=== PATIENT | female | born 1990 | race Hispanic/Latino ===

== ENCOUNTER 2019-02-12 10:30 | Inpatient (IN) | payer OTHER ==
[~2019-02-12] VITALS: Ht 154.9 cm; Wt 78.1 kg
[2019-02-12 10:54] LABS: BASOPHILS % (AUTO) 0.6 % (0.0-5.0); EOSINOPHILS % (AUTO) 3.8 % (0.0-8.0); LYMPHOCYTES % (AUTO) 30.7 % (21.0-51.0); MEAN CORPUSCULAR HEMOGLOBIN 28.9 pg (27.0-33.0); MEAN CORPUSCULAR HGB CONC 33.7 g/dL (32.0-36.0); MEAN CORPUSCULAR VOLUME 85.6 fL (79-99); MONOCYTES % (AUTO) 6.7 % (3.0-13.0); NEUTROPHILS % (AUTO) 58.2 % (40.0-77.0); PLATELET COUNT (AUTO) 265 K/uL (130-400); RED BLOOD CELL COUNT(AUTO) 4.44 MIL/uL (4.00-5.50); RED CELL DISTRIBUTION WIDTH 13.2 % (11.0-15.5); WHITE BLOOD COUNT (AUTO) 6.8 K/uL (4.8-10.8)
[2019-02-12] MEDS ORDERED: SODIUM CHLORIDE 0.9% 1000ML 0 ML IV ONE (11:00)
[2019-02-12] MEDS ORDERED: ONDANSETRON HCL 4 MG/2 ML VIAL ONE (11:00)
[2019-02-12 11:04] LABS: CREATININE 0.7 mg/dL (0.5-1.5); POTASSIUM 3.5 mmol/L (3.5-5.1)
[2019-02-12 11:05] LABS: INR 1.03 (0.85-1.15); PARTIAL THROMBOPLASTIN TIME 27.7 SEC (26.3-35.5); PROTHROMBIN TIME 10.8 SEC (9.6-11.6)
[2019-02-12 11:15] LABS: BILIRUBIN,DIRECT 2.9 mg/dL (0.0-0.3); BILIRUBIN,TOTAL 3.8 mg/dL (0.2-1.0); TOTAL PROTEIN, SERUM 8.4 g/dL (6.0-8.3)
[2019-02-12 11:40] LABS: APPEARANCE,URINE CLEAR (CLEAR); BILIRUBIN,URINE MODERATE (NEGATIVE); COLOR,URINE YELLOW (YELLOW); GLUCOSE, URINE (UA) NEGATIVE (NEGATIVE); KETONES,URINE 5 mg/dL (NEGATIVE); LEUKOCYTE ESTERASE ,URINE NEGATIVE (NEGATIVE); NITRATE,URINE NEGATIVE (NEGATIVE); OCCULT BLOOD,URINE MODERATE (NEGATIVE); PH,URINE 5.5 (5.0-8.0); PROTEIN,URINE NEGATIVE (NEGATIVE); UROBILINOGEN,URINE 0.2 mg/dL (0.2-1.0)
[2019-02-12 11:43] LABS: HCG,QUAL RESULT NEGATIVE (NEGATIVE)
[2019-02-12 11:45] LABS: AMPHET/METH SCREEN,URINE NEGATIVE (NEGATIVE); BARBITURATE SCREEN, URINE NEGATIVE (NEGATIVE); BENZODIAZEPINES SCREEN,URINE NEGATIVE (NEGATIVE); CANNABINOID SCREEN,URINE NEGATIVE (NEGATIVE); COCAINE SCREEN,URINE NEGATIVE (NEGATIVE); OPIATE SCREEN,URINE NEGATIVE (NEGATIVE); PHENCYCLIDINE SCREEN,URINE NEGATIVE (NEGATIVE)
[2019-02-12 11:47] LABS: BACTERIA,URINE Rare /HPF (None Seen); SQUAMOUS EPITHELIAL CELL,UR 0-2 /HPF (0-2); WBC,URINE 0-1 /HPF (0-1)
[2019-02-12] MEDS ORDERED: POTASSIUM CHLORIDE 20MEQ/100ML 100 ML IV PRN (14:45)
[2019-02-12] MEDS ORDERED: LIDOCAINE HCL-MPF 1% 2ML VIAL IVP PRN ×2 (14:45)
[2019-02-12] MEDS ORDERED: POTASSIUM CHLORIDE 10MEQ/100ML 100 ML IV PRN (14:45)
[2019-02-12] MEDS ORDERED: FAMOTIDINE/PF 20 MG/2 ML VIAL IV ONE ×2 (15:06→15:13)
[2019-02-12] MEDS ORDERED: SODIUM CHLORIDE 0.9% 1000ML 1,000 ML IV ONE ×2 (15:07→15:13)
[2019-02-12] MEDS ORDERED: IOHEXOL-350 75 ML VIAL IV ONE (15:13)
[2019-02-12] MEDS ORDERED: ACETAMINOPHEN EXTRA STRENGTH 500 MG TABLET ONE (15:49)
[2019-02-12 16:22] VITALS: BP 138/87
[2019-02-12] MEDS: SODIUM CHLORIDE 0.9% 1000ML 1,000 ML IV SCH (16:45)
[2019-02-12] MEDS ORDERED: TETR-68 PO (17:14)
[2019-02-12] MEDS ORDERED: AMOX500T2 PO (17:14)
[2019-02-12] MEDS ORDERED: PANT40TA25 PO (17:14)
--- NOTE | 2019-02-12 18:25 | NUR ---
DR. ZEE ORDERED CLEAR LIQUIDS IF NO PAIN PT WITH NO PAIN. MRCP AND HIDA SCAN ORDERED. SPOKE WITH SYED FROM RADIOLOGY AND MRCP WILL NOT BE DONE TODAY UNLESS ORDERED STAT. SPOKE WITH SAE FROM HIDA SCAN AND SAID HIDA SCAN WOULD NOT BE DONE TODAY. PT DENIES ANY PAIN OR DISCOMFORT. CLEAR LIQUIDS TO BE ORDERED AND NPO AFTER MN.
[2019-02-12 19:30] VITALS: BP 128/79
[2019-02-12] MEDS: FAMOTIDINE/PF 20 MG/2 ML VIAL IV SCH (20:01)
[2019-02-12 23:31] VITALS: BP 113/60
[2019-02-13] MEDS: SODIUM CHLORIDE 0.9% 1000ML 1,000 ML IV SCH ×2 (00:33→20:33)
[2019-02-13 04:07] VITALS: BP 108/74
[2019-02-13 05:21] LABS: HEMATOCRIT 34.9 % (36-48); MEAN CORPUSCULAR HEMOGLOBIN 29.1 pg (27.0-33.0); MEAN CORPUSCULAR HGB CONC 33.5 g/dL (32.0-36.0); MEAN CORPUSCULAR VOLUME 86.9 fL (79-99); PLATELET COUNT (AUTO) 237 K/uL (130-400); RED BLOOD CELL COUNT(AUTO) 4.02 MIL/uL (4.00-5.50); RED CELL DISTRIBUTION WIDTH 13.3 % (11.0-15.5); WHITE BLOOD COUNT (AUTO) 6.1 K/uL (4.8-10.8)
[2019-02-13 05:56] LABS: ALBUMIN 3.3 g/dL (3.5-5.0); BILIRUBIN,DIRECT 1.4 mg/dL (0.0-0.3); CREATININE 0.8 mg/dL (0.5-1.5); POTASSIUM 4.2 mmol/L (3.5-5.1); THYROID STIMULATING HORMONE 3.64 uIU/mL (0.36-3.74); TOTAL PROTEIN, SERUM 6.9 g/dL (6.0-8.3)
[2019-02-13 07:00] VITALS: BP 117/80
[2019-02-13 07:15] LABS: HEPATITIS A ANTIBODY IGM Negative (Negative); HEPATITIS B CORE IGM Negative (Negative); HEPATITIS Bs ANTIGEN SCREEN P Negative (Negative)
--- NOTE | 2019-02-13 10:00 | NUR ---
MERCEDES NOTE INITIAL ASSESSMENT ATTEMPTED, PT NOT IN ROOM, WILL COME BACK Addendum: 02/13/19 at 1721 by ELIZABETH WALKER RN CM Amended: Links added.
[2019-02-13 11:00] VITALS: BP 116/76
[2019-02-13 13:56] LABS: BASOPHILS % (AUTO) 0.4 % (0.0-5.0); EOSINOPHILS % (AUTO) 2.5 % (0.0-8.0); HEMATOCRIT 37.5 % (36-48); LYMPHOCYTES % (AUTO) 23.8 % (21.0-51.0); MEAN CORPUSCULAR HEMOGLOBIN 29.2 pg (27.0-33.0); MEAN CORPUSCULAR HGB CONC 33.7 g/dL (32.0-36.0); MEAN CORPUSCULAR VOLUME 86.5 fL (79-99); MONOCYTES % (AUTO) 4.3 % (3.0-13.0); PLATELET COUNT (AUTO) 269 K/uL (130-400); RED BLOOD CELL COUNT(AUTO) 4.34 MIL/uL (4.00-5.50); RED CELL DISTRIBUTION WIDTH 13.2 % (11.0-15.5); WHITE BLOOD COUNT (AUTO) 8.4 K/uL (4.8-10.8)
[2019-02-13 14:04] LABS: CREATININE 0.8 mg/dL (0.5-1.5); POTASSIUM 3.9 mmol/L (3.5-5.1)
[2019-02-13 14:08] LABS: PROTHROMBIN TIME 10.5 SEC (9.6-11.6)
[2019-02-13] MEDS: FAMOTIDINE/PF 20 MG/2 ML VIAL IV SCH ×2 (14:18→22:20)
[2019-02-13 16:00] VITALS: BP 102/65
[2019-02-13 20:00] VITALS: BP 124/77
--- NOTE | 2019-02-13 23:20 | NUR ---
SURGERY CONSULT WAS INFORMED BY Robe ROMAN RN THAT DR. KANE SWAN" WAS HERE AND SAW PATIENT. TELLS ME HE SAID HE WILL AWAIT FOR PATIENT TO HAVE ERCP TOMORROW.
[2019-02-14] VITALS (19 sets, daily range): BP systolic 103–144; BP diastolic 50–83
[2019-02-14] MEDS: SODIUM CHLORIDE 0.9% 1000ML 1,000 ML IV SCH ×2 (02:58→18:07)
[2019-02-14 05:48] LABS: BASOPHILS % (AUTO) 0.7 % (0.0-5.0); EOSINOPHILS % (AUTO) 2.5 % (0.0-8.0); HEMATOCRIT 34.6 % (36-48); LYMPHOCYTES % (AUTO) 30.5 % (21.0-51.0); MEAN CORPUSCULAR HEMOGLOBIN 29.1 pg (27.0-33.0); MEAN CORPUSCULAR HGB CONC 34.1 g/dL (32.0-36.0); MEAN CORPUSCULAR VOLUME 85.3 fL (79-99); MONOCYTES % (AUTO) 4.9 % (3.0-13.0); NEUTROPHILS % (AUTO) 61.4 % (40.0-77.0); NUCLEATED RED BLOOD CELLS 0.1 % (0.0-0.19); PLATELET COUNT (AUTO) 260 K/uL (130-400); RED BLOOD CELL COUNT(AUTO) 4.06 MIL/uL (4.00-5.50); RED CELL DISTRIBUTION WIDTH 13.3 % (11.0-15.5); WHITE BLOOD COUNT (AUTO) 8.4 K/uL (4.8-10.8)
[2019-02-14 06:02] LABS: ALBUMIN 3.3 g/dL (3.5-5.0); BILIRUBIN,DIRECT 0.9 mg/dL (0.0-0.3); BILIRUBIN,TOTAL 1.6 mg/dL (0.2-1.0); CREATININE 0.9 mg/dL (0.5-1.5); POTASSIUM 3.8 mmol/L (3.5-5.1)
[2019-02-14] MEDS ORDERED: IOHEXOL-350 50ML VIAL IV ONE (06:40)
[2019-02-14] MEDS ORDERED: INDOMETHACIN 50 MG SUPP.RECT RC SCH (07:00)
[2019-02-14] MEDS ORDERED: LIDOCAINE HCL 2% 20ML ONE (07:21)
[2019-02-14] MEDS ORDERED: PROPOFOL 1000 MG/100 ML 100 ML IV ONE (07:22)
[2019-02-14] MEDS ORDERED: SUCCINYLCHOLINE 200MG/10ML SYR ONE (07:22)
[2019-02-14] MEDS: FAMOTIDINE/PF 20 MG/2 ML VIAL IV SCH ×2 (09:00→21:28)
--- NOTE | 2019-02-14 12:30 | NUR ---
INITIAL SEEN AT BEDSIDE WITH SPOUSE; AAOX3, IN DISCOMFORT EMPLOYED, [employer] NO DME, DCP HOME Addendum: 02/14/19 at 1339 by ELIZABETH WALKER RN Amended: Links added.
[2019-02-15] VITALS (16 sets, daily range): BP systolic 108–160; BP diastolic 52–86
[2019-02-15 04:58] LABS: BASOPHILS % (AUTO) 0.6 % (0.0-5.0); HEMATOCRIT 35.3 % (36-48); MEAN CORPUSCULAR HGB CONC 33.6 g/dL (32.0-36.0); MEAN CORPUSCULAR VOLUME 86.3 fL (79-99); MONOCYTES % (AUTO) 5.8 % (3.0-13.0); NEUTROPHILS % (AUTO) 63.6 % (40.0-77.0); NUCLEATED RED BLOOD CELLS 0.1 % (0.0-0.19); PLATELET COUNT (AUTO) 266 K/uL (130-400); RED BLOOD CELL COUNT(AUTO) 4.09 MIL/uL (4.00-5.50); RED CELL DISTRIBUTION WIDTH 13.2 % (11.0-15.5); WHITE BLOOD COUNT (AUTO) 8.7 K/uL (4.8-10.8)
[2019-02-15 05:02] LABS: ALBUMIN 3.5 g/dL (3.5-5.0); BILIRUBIN,DIRECT 0.7 mg/dL (0.0-0.3); BILIRUBIN,TOTAL 1.3 mg/dL (0.2-1.0); CREATININE 0.8 mg/dL (0.5-1.5); POTASSIUM 4.2 mmol/L (3.5-5.1); TOTAL PROTEIN, SERUM 7.3 g/dL (6.0-8.3)
[2019-02-15] MEDS: FAMOTIDINE/PF 20 MG/2 ML VIAL IV SCH ×2 (08:41→19:48)
[2019-02-15] MEDS ORDERED: LIDOCAINE PF 2% 5ML ABBOJECT ONE (16:46)
[2019-02-15] MEDS ORDERED: SUCCINYLCHOLINE 200MG/10ML SYR ONE ×2 (16:46→17:44)
[2019-02-15] MEDS ORDERED: DEXAMETHASONE SOD PHOSPHATE 10MG/ML 1ML VIAL ONE (16:46)
[2019-02-15] MEDS ORDERED: PROPOFOL 10 MG/ML 20ML VIAL IV ONE (16:46)
[2019-02-15] MEDS ORDERED: ONDANSETRON HCL 4 MG/2 ML VIAL ONE (16:47)
[2019-02-15] MEDS ORDERED: NEOSTIGMINE 5MG/5ML SYR IV ONE (16:47)
[2019-02-15] MEDS ORDERED: GLYCOPYRROLATE 1 MG/5 ML SYRINGE ONE (16:47)
[2019-02-15] MEDS ORDERED: MIDAZOLAM HCL 1 MG/ML 2ML VIAL ONE (16:47)
[2019-02-15] MEDS ORDERED: FENTANYL CITRATE PF 50 MCG/1 ML 2ML VIAL ONE ×2 (16:48→18:53)
[2019-02-15] MEDS ORDERED: ROCURONIUM 10MG/1ML SYR 10 MG/ML ML ONE (16:48)
--- NOTE | 2019-02-15 16:51 | NUR ---
TO OR PATIENT TRANSPORTED TO OR HOLDING AREA VIA HOSPITAL BED ACCOMPANIED BY SPOUSE. NO DISTRESS NOTED, NO COMPLAINTS VOICED.
[2019-02-15] MEDS ORDERED: CEFAZOLIN SODIUM 1 GM VIAL ONE (17:28)
[2019-02-15] MEDS ORDERED: LIDOCAINE HCL 4% LTA SOL 4 ML VIAL ONE (17:44)
[2019-02-15] MEDS ORDERED: BUPIVACAINE/EPI/PF 0.5% 30ML VIAL IJ ONE (17:53)
[2019-02-15] MEDS ORDERED: BACITRACIN 50,000 UNIT VIAL ONE (17:53)
[2019-02-15] MEDS: SODIUM CHLORIDE 0.9% 1000ML 1,000 ML IV SCH ×2 (18:15→22:48)
[2019-02-15] MEDS ORDERED: MEPERIDINE-PF 25 MG/ML SYG ONE (18:25)
[2019-02-15] MEDS ORDERED: MORPHINE SULFATE 4 MG/1ML SYG ONE (18:37)
[2019-02-15] MEDS: MORPHINE SULFATE 2 MG/ML 1ML SYG IV PRN (23:05)
[2019-02-16] VITALS (7 sets, daily range): BP systolic 113–134; BP diastolic 55–73
[2019-02-16] MEDS: OXYCODONE/ACETAMIN 5/325MG TAB PO PRN (02:48)
[2019-02-16] MEDS: MORPHINE SULFATE 2 MG/ML 1ML SYG IV PRN ×2 (03:45→10:44)
[2019-02-16 04:57] LABS: BASOPHILS % (AUTO) 0.1 % (0.0-5.0); HEMATOCRIT 35.1 % (36-48); LYMPHOCYTES % (AUTO) 8.8 % (21.0-51.0); MEAN CORPUSCULAR HEMOGLOBIN 28.8 pg (27.0-33.0); MEAN CORPUSCULAR HGB CONC 33.8 g/dL (32.0-36.0); MEAN CORPUSCULAR VOLUME 85.5 fL (79-99); MONOCYTES % (AUTO) 1.9 % (3.0-13.0); NEUTROPHILS % (AUTO) 89.2 % (40.0-77.0); PLATELET COUNT (AUTO) 277 K/uL (130-400); RED BLOOD CELL COUNT(AUTO) 4.11 MIL/uL (4.00-5.50); RED CELL DISTRIBUTION WIDTH 13.5 % (11.0-15.5); WHITE BLOOD COUNT (AUTO) 12.4 K/uL (4.8-10.8)
[2019-02-16 05:17] LABS: ALBUMIN 3.6 g/dL (3.5-5.0); BILIRUBIN,TOTAL 1.1 mg/dL (0.2-1.0); CREATININE 0.6 mg/dL (0.5-1.5); POTASSIUM 4.4 mmol/L (3.5-5.1); TOTAL PROTEIN, SERUM 7.7 g/dL (6.0-8.3)
[2019-02-16] MEDS: SODIUM CHLORIDE 0.9% 1000ML 1,000 ML IV SCH ×2 (09:20→18:11)
[2019-02-16] MEDS: FAMOTIDINE/PF 20 MG/2 ML VIAL IV SCH ×2 (09:26→19:30)
--- NOTE | 2019-02-16 13:31 | NUR ---
PILL Patient refuses any pills at this time stating she feels OK. No pain.
[2019-02-17] MEDS: OXYCODONE/ACETAMIN 5/325MG TAB PO PRN (03:35)
[2019-02-17] MEDS: SODIUM CHLORIDE 0.9% 1000ML 1,000 ML IV SCH (03:35)
[2019-02-17 04:04] VITALS: BP 94/58
[2019-02-17 06:25] LABS: HEMATOCRIT 32.4 % (36-48); MEAN CORPUSCULAR HEMOGLOBIN 28.8 pg (27.0-33.0); MEAN CORPUSCULAR VOLUME 87.4 fL (79-99); PLATELET COUNT (AUTO) 235 K/uL (130-400); RED CELL DISTRIBUTION WIDTH 13.5 % (11.0-15.5); WHITE BLOOD COUNT (AUTO) 10.5 K/uL (4.8-10.8)
[2019-02-17 06:39] LABS: ALBUMIN 3.1 g/dL (3.5-5.0); CREATININE 0.6 mg/dL (0.5-1.5); POTASSIUM 3.5 mmol/L (3.5-5.1); TOTAL PROTEIN, SERUM 6.9 g/dL (6.0-8.3)
[2019-02-17 07:29] LABS: LYMPHOCYTES % (MANUAL) 31 % (22-44); MAN.DIFF COMMENT-IMPRESSION MANUAL DIFFERENTIAL; MONOCYTES % (MANUAL) 7 % (2-9); PLATELET MORPHOLOGY COMMENT ADEQUATE; SEGMENTED NEUTROPHILS % 62 % (40-70)
[2019-02-17 08:00] VITALS: BP 126/73
[2019-02-17] MEDS: FAMOTIDINE/PF 20 MG/2 ML VIAL IV SCH (09:50)
--- NOTE | 2019-02-17 14:47 | NUR ---
DISCHARGE Patient received discharge instructions. Dr. Lee had talked to patient and instructed her to keep steristrip and let them come off on their own; and that she is able to take showers. Patient verbalized and demonstrated understanding. Discharge with prescription in hand and aware she has to make appointments with Drs. Lee and Quintin.
== END 2019-02-17 14:20 | disposition home or self-care (01) | DRG 419 ==
LOC: EDH 10:30 → OBSVTOIN 14:33 → EDHIP 14:33 → 3CH 15:58
PROVIDERS: ADMIT Family Medicine; ATTEND Family Medicine
PROC: 0FC98ZZ Extirpation of Matter from Common Bile Duct, Via Natural or Artificial Opening Endoscopic (ICD-10-PCS; principal; 2019-02-14)
PROC: BF101ZZ Fluoroscopy of Bile Ducts using Low Osmolar Contrast (ICD-10-PCS; 2019-02-14)
PROC: 0FT44ZZ Resection of Gallbladder, Percutaneous Endoscopic Approach (ICD-10-PCS; 2019-02-15)
DX: K80.43 Calculus of bile duct with acute cholecystitis with obstruction (principal); E66.9 Obesity, unspecified; K76.0 Fatty (change of) liver, not elsewhere classified; Z68.32 Body mass index [BMI] 32.0-32.9, adult
CPT/HCPCS: 36415; 43262; 43264; 74170; 74181; 74330; 76705; 78226; 80048; 80053; 80074; 80076; 80305; 81001; 81025; 82150; 82248; 82977; 83690; 84443; 85025; 85027; 85610; 85730; 88304; A9537; C1769; C1773; G0378; J0330; J0690; J1100; J2001; J2175; J2250; J2270; J2405; J2704; J2710; J3010; J3480; J3490; J7030; J7120; Q9967

== ENCOUNTER 2020-07-11 13:02 | Emergency (ER) | payer OTHER ==
[~2020-07-11 13:02] MED LIST: AMOX500T2 PO; PANT40TA55 PO; TETR-68 PO
[2020-07-11] MEDS ORDERED: SODIUM CHLORIDE 0.9% 1000ML 1,000 ML IV ONE (13:39)
[2020-07-11] MEDS ORDERED: KETOROLAC TROMETHAMINE 30MG/ML ONE (13:44)
[2020-07-11] MEDS ORDERED: DiphenhydrAMINE HCL 50 MG/ML VIAL ONE (13:44)
[2020-07-11] MEDS ORDERED: METOCLOPRAMIDE 10 MG/2 ML VIAL ONE (13:44)
[2020-07-11 14:12] LABS: RAPID GROUP A STREP NEGATIVE (NEGATIVE)
[2020-07-11] MEDS ORDERED: CEFTRIAXONE SODIUM 1 GM ONE (14:41)
[2020-07-11] MEDS ORDERED: SODIUM CHLORIDE 0.9% 50 ML IV ONE (14:42)
[2020-07-11 15:30] LABS: APPEARANCE,URINE Clear (CLEAR); BILIRUBIN,URINE Negative (NEGATIVE); COLOR,URINE Yellow (YELLOW); GLUCOSE, URINE (UA) Negative (NEGATIVE); KETONES,URINE Negative (NEGATIVE); LEUKOCYTE ESTERASE ,URINE Trace (NEGATIVE); NITRATE,URINE Negative (NEGATIVE); OCCULT BLOOD,URINE Small (NEGATIVE); PH,URINE 6.5 (5.0-8.0); PROTEIN,URINE Negative (NEGATIVE); UROBILINOGEN,URINE 0.2 mg/dL (0.2-1.0)
[2020-07-11 16:02] LABS: BACTERIA,URINE Rare /HPF (None Seen); MUCUS,URINE Rare LPF (None Seen); SQUAMOUS EPITHELIAL CELL,UR Few /HPF (0-2)
== END 2020-07-11 15:39 | disposition home or self-care (01) ==
LOC: EDH 13:02
DX: U07.1 COVID-19 (principal); R51.9 Headache, unspecified; Z88.1 Allergy status to other antibiotic agents; Z98.890 Other specified postprocedural states
CPT/HCPCS: 71045; 81001; 87426; 87804 ×2; 87880; 96361; 96365; 96375; 99284; J0696; J1200; J1885; J2765; J7030

== ENCOUNTER → 2021-07-20 | Outpatient (CLI) | payer OTHER | END | disposition home or self-care (01) | LOC: LAB 10:40 | PROVIDERS: ATTEND Internal Medicine Cardiovascular Disease | DX: Z11.59 Encounter for screening for other viral diseases (principal); Z20.822 Contact with and (suspected) exposure to COVID-19 | CPT/HCPCS: 87635; 87804 ×2; C9803 ==

== ENCOUNTER → 2024-02-21 | Outpatient (CLI) | payer OTHER | END | disposition home or self-care (01) | LOC: RAH 08:03 | PROVIDERS: ATTEND Internal Medicine | DX: R76.11 Nonspecific reaction to tuberculin skin test without active tuberculosis (principal) | CPT/HCPCS: 71046 ==